=== PATIENT | female | born 1995 | race Caucasian/White ===

== ENCOUNTER 2021-09-15 22:42 | Emergency (ER) | payer SELFPAY ==
[~2021-09-15] VITALS: Ht 162.6 cm; Wt 77.0 kg
[2021-09-15 23:08] VITALS: BP 136/76
[2021-09-15] MEDS ORDERED: ACETAMINOPHEN 325MG TABLET PO STA (23:15)
[2021-09-16] MEDS ORDERED: ALBU18HF2 IH (02:17)
[2021-09-16] MEDS ORDERED: IBUP-2029 PO (02:17)
== END 2021-09-16 02:58 | disposition home or self-care (01) ==
LOC: ER 22:42
DX: U07.1 COVID-19 (principal); J20.9 Acute bronchitis, unspecified
CPT/HCPCS: 71045; 81025; 87070; 87426; 87430; 99284